=== PATIENT | female | born 1990 | race African-American/Black ===

== ENCOUNTER 2021-02-05 13:13 | Emergency (ER) | payer SELFPAY ==
[~2021-02-05] VITALS: Ht 170.2 cm; Wt 72.6 kg
[~2021-02-05 13:13] MED LIST: PREN-129 OR
[2021-02-05 13:14] VITALS: BP 112/48
== END 2021-02-05 14:33 | disposition home or self-care (01) ==
LOC: ER 13:13
DX: Z30.432 Encounter for removal of intrauterine contraceptive device (principal); N30.00 Acute cystitis without hematuria
CPT/HCPCS: 72170; 81002; 81025